=== PATIENT | male | born 1955 | race Caucasian/White ===

== ENCOUNTER 2017-04-21 05:51 | Day surgery (SDC) | payer OTHER ==
[2017-04-21] MEDS ORDERED: MIDAZOLAM 1 MG/ML 2 ML INJ (08:19)
[2017-04-21] MEDS ORDERED: FENTAnyl 50 MCG/ML VIAL (08:20)
== END 2017-04-21 08:59 | disposition home or self-care (01) ==
LOC: GIL 05:51
DX: Z12.11 Encounter for screening for malignant neoplasm of colon (principal); K64.8 Other hemorrhoids
CPT/HCPCS: 45378